=== PATIENT | female | born 1995 | race Hispanic/Latino ===

== ENCOUNTER 2016-08-20 07:46 | Inpatient (IN) | payer OTHER ==
[~2016-08-20] VITALS: Ht 157.5 cm; Wt 97.5 kg
[~2016-08-20 07:46] MED LIST: Ibuprofen PO; NOMED
[2016-08-20] MEDS ORDERED: Lactated Ringer's 1,000 ML IV PRN (08:31)
[2016-08-20] MEDS ORDERED: Sodium Chloride LOK Flush 10 mL Syringe IVFLUSH PRN (08:35)
[2016-08-20] MEDS ORDERED: Methylergonovine 0.2 mg/mL Inj IM PRN ×2 (08:35→19:20)
[2016-08-20] MEDS ORDERED: Hemorrhage Kit, Post Partum XX ONE ×2 (08:35→19:20)
[2016-08-20] MEDS ORDERED: Carboprost 250 mCg/mL Inj IM PRN ×2 (08:35→19:20)
[2016-08-20] MEDS ORDERED: fentaNYL-PF 50 mCg/mL 2 mL Inj IVPUSH PRN (08:35)
[2016-08-20] MEDS ORDERED: Oxytocin 10 Unit/mL Inj IM PRN ×2 (08:35→19:20)
[2016-08-20 09:35] LABS: Mean Corpuscular Hemoglobin 21.3 pg (27.0-35.0)
[2016-08-20] MEDS: Oxytocin 30 Units/500 mL LR 30 UNITS in IV Premix 1 EACH IV PRN ×2 (14:49→19:15)
[2016-08-20] MEDS ORDERED: Lactated Ringer's 1,000 ML IV SCH (19:17)
[2016-08-20] MEDS ORDERED: Witch Hazel-Glycerin Pads TOPICAL PRN (19:20)
[2016-08-20] MEDS ORDERED: Benzocaine (Dermoplast) 20% 60 Gm Spray TOPICAL PRN (19:20)
[2016-08-20] MEDS ORDERED: oxyCODONE-Acetamin 5-325 mg Tablet PO PRN (19:20)
[2016-08-20] MEDS ORDERED: LANOlin HPA 7 Gm Ointment TOPICAL PRN (19:20)
[2016-08-20] MEDS ORDERED: Oxytocin 30 Units/500 mL LR 30 UNITS in IV Premix 1 EACH IV PRN (19:20)
[2016-08-20] MEDS: HYDROcodone-APAP 5-325 mg Tablet PO PRN (20:06)
[2016-08-21 06:24] LABS: Mean Corpuscular Hemoglobin 21.3 pg (27.0-35.0); Mean Corpuscular Volume 70.2 fL (81-100)
[2016-08-21] MEDS: HYDROcodone-APAP 5-325 mg Tablet PO PRN (10:51)
--- NOTE | 2016-08-21 13:10 | PCM.DC.OB ---
Obstetrical Discharge Summary Date of Service Aug 21, 2016 Date of hospital admission Aug 20, 2016 at 08:09 Date of Discharge: Aug 21, 2016 Providers Admitting Physician: Jaspreet Crump MD Primary Care Physician: Jaspreet Crump MD Attending Physician: Jaspreet Crump MD Problems: (1) Status post normal vaginal delivery Status: Acute ICD Code: [id number] Consultations None Invasive procedures NVD Date of Procedure: Aug 20, 2016 Hospital Course: Patient presented with SROM...didn't go into labor. Added pitocin. Delivered in normal fashion. Post hemorrhage with pitocin, cytotec and methergine given. Hct went from 28 to 23. Recovered nicely. No transfusion. ([Ibuprofen]) 800 MG TABLET 800 MG PO Q6H PRN PRN For Pain Prescribed by: JASPREET CRUMP MD No Historical Medication (No Historical Medication) Ea 0 (Reported) Follow-up plan See me in 8 weeks. Discharge Diet: No restrictions Discharge Activity-General: Pelvic Rest for 6 weeks, Be up and about, Activity as pain allows, Activity as energy allows, No lifting >15 pounds for 2 weeks copies to: Jayla Allen ARNP Benson, David B MD Aug 21, 2016 13:10
--- NOTE | 2016-08-21 13:12 | PCM.DIOB ---
Obstetrical Disch Instruction Date of Service: Aug 21, 2016 Dates of Hospitalization Date of Hospital Admission Aug 20, 2016 at 08:09 Providers Admitting Physician: Jaspreet Velasco MD Primary Care Physician: Jaspreet Velasco MD Attending Physician: Jaspreet Velasco MD Discharge Diagnosis Problems: (1) Status post normal vaginal delivery Status: Acute ICD Code: [id number] Diet Discharge Diet: No restrictions Activity Discharge Activity-General: Pelvic Rest for 6 weeks, Be up and about, Balance rest and activity, Activity as pain allows, Activity as energy allows, No lifting >15 pounds for 2 weeks Dressing and Incisional Care Hygiene: May shower, Perineal care, Sitz bath, Dermoplast spray, Witch Naye pads Follow Up Plan Follow-up Provider (F9): Jaspreet Velasco MD Follow-up appointment: Weeks (8) Call your provider for: Fever or Chills, Shortness of breath, Heavy vaginal bleeding, Excessive constipation, Red painful breasts Jaspreet Velasco MD Aug 21, 2016 13:12
[2016-08-21] MEDS ORDERED: IBUP800T28 PO (13:13)
[2016-08-21] MEDS ORDERED: FERR-74 PO (13:13)
[2016-08-21] MEDS ORDERED: DOCU-41 PO (13:13)
[2016-08-21] MEDS ORDERED: HYDR-4003 PO (13:13)
[2016-08-21 14:21] VITALS: BP 123/57; PULSE 97; RESP 18
--- NOTE | 2016-08-21 17:08 | PROCED ---
[address] [address] PROCEDURE NOTE PATIENT: SITA QUILES : 1995 MR#: [id number] ADMIT: 08/20/2016 JOB ID: [id number] DATE OF SERVICE: 08/20/2016 at around 6:40 p.m. POSTOPERATIVE DIAGNOSIS(ES): PREOPERATIVE DIAGNOSIS(ES): SURGEON: Jaspreet Velasco MD This 20-year-old G3, P1 female at 40 weeks estimated gestational age delivered an 8 pound 6 ounce female by normal vaginal delivery. The patient presented having ruptured her membranes at about 6:30 in the morning. She did not progress on her own after presenting at 3 cm dilation. Her contraction pattern was irregular. At about 2 p.m., she was started on Pitocin and rapidly progressed to complete by about 6:30 p.m. She required no epidural and did not receive antibiotics given that she was GBS negative. The patient pushed over approximately 5-10 minutes. She delivered across an intact perineum. Her placenta delivered spontaneously and intact at 10 minutes , but there were big clots behind it. Pitocin was kept running at maximum doses and multiple clots were obtained from her uterus despite her uterus being relatively firm. 600 mcg of Cytotec were inserted rectally. The patient still had bleeding and so an amp of Methergine was given. She responded to all of this and had minimal bleeding thereafter. At no time during her labor did she have fevers. She did get one dose of IV fentanyl prior to delivery for pain control. The heart strip was reactive and reassuring throughout. There were no other complications. Her uterus was found to be firm, her cervix intact, and her perineum intact. Her rectum was also intact. Counts were correct x2. She was in excellent condition following delivery.
[2016-08-21] MEDS ORDERED: Carboprost 250 mCg/mL Inj IM ONE (18:59)
[2016-08-21] MEDS ORDERED: Methylergonovine 0.2 mg/mL Inj IM ONE (18:59)
== END 2016-08-21 19:00 | disposition home or self-care (01) | DRG 774 ==
LOC: FBCO 07:46 → FBC 08:09
PROVIDERS: ADMIT Family Medicine; ATTEND Family Medicine
PROC: 10E0XZZ Delivery of Products of Conception, External Approach (ICD-10-PCS; principal; 2016-08-20)
DX: O62.3 Precipitate labor (principal); O72.1 Other immediate postpartum hemorrhage; Z3A.40 40 weeks gestation of pregnancy; Z37.0 Single live birth